=== PATIENT | male | born 1990 | race Caucasian/White ===

== ENCOUNTER 2017-10-17 14:42 | Emergency (ER) | payer BC, OTHER ==
[2017-10-17 14:56] VITALS: BMI 34.4
[2017-10-17 14:58] VITALS: BP 147/82; PULSE 77; RESP 16; TEMP 98.4; O2SAT 98
--- NOTE | 2017-10-17 15:10 | C.PDOC ---
History Of Present Illness 26-year-old male, presents to the emergency department with complaints of pain to right wisdom tooth ongoing for the past few days. Pt took Tylenol with minimal relief. He denies any nausea/vomiting, fever. No other complaints at this time. Time Seen by Provider: 10/17/17 15:02 Chief Complaint (Nursing): Dental Pain History Per: Patient History/Exam Limitations: no limitations Current Symptoms Are (Timing): Still Present Severity: Moderate Past Medical History Reviewed: Historical Data, Nursing Documentation, Vital Signs Vital Signs: Last Vital Signs Temp 98.4 F 10/17/17 14:56 Pulse 77 10/17/17 14:56 Resp 16 10/17/17 14:56 BP 147/82 10/17/17 14:56 Pulse Ox 98 10/17/17 19:42 Family History: States: No Known Family Hx - Social History Hx Alcohol Use: No Hx Substance Use: No - Immunization History Hx Tetanus Toxoid Vaccination: No Hx Influenza Vaccination: No Hx Pneumococcal Vaccination: No Review Of Systems Constitutional: Negative for: Fever, Chills ENT: Positive for: Other (teeth pain) Respiratory: Negative for: Cough, Shortness of Breath Gastrointestinal: Negative for: Nausea, Vomiting Neurological: Negative for: Headache Physical Exam - Physical Exam Appears: Non-toxic, No Acute Distress Skin: Normal Color, Warm, Dry, No Rash Head: Atraumatic, Normacephalic Eye(s): bilateral: Normal Inspection Nose: Normal Oral Mucosa: Moist Lips: Normal Appearing Teeth: Other (Right lower wisdom tooth, impacted, +gingival swelling. No abscess , no blood) Neck: Normal ROM Chest: Symmetrical Respiratory: No Accessory Muscle Use (No apparent respiratory distress) Extremity: Normal ROM, No Deformity Neurological/Psych: Oriented x3, Normal Speech ED Course And Treatment O2 Sat by Pulse Oximetry: 98 (RA) Pulse Ox Interpretation: Normal Medical Decision Making Medical Decision Making: Plan: Pt treated with Penicillin, and discharged for outpatient f/u with dentist. Disposition Counseled Patient/Family Regarding: Need For Followup - Disposition Referrals: [facility] [Outside] Disposition: HOME/ ROUTINE Disposition Time: 15:05 Condition: STABLE Additional Instructions: Por favor rogleio un seguimiento con el dentista Carla medicamento Prescriptions: Acetaminophen with Codeine [Tylenol with Codeine No. 3 300 mg-30 mg] 1 tab PO Q8 PRN #20 tab PRN Reason: Pain, Moderate (4-7) Penicillin VK [Penicillin VK Tab] 1 tab PO BID #20 tab Instructions: Dental Pain (DC) Forms: [facility] ([place]) Print Language: GUINEAN - POA Present On Arrival: None - Clinical Impression Clinical Impression: Dental caries - Scribe Statement The provider has reviewed the documentation as recorded by the Scribe (Eloy Tucker) All medical record entries made by the Scribe were at my direction and personally dictated by me. I have reviewed the chart and agree that the record accurately reflects my personal performance of the history, physical exam, medical decision making, and the department course for this patient. I have also personally directed, reviewed, and agree with the discharge instructions and disposition.
== END 2017-10-17 15:36 | disposition home or self-care (01) ==
LOC: C.ER 14:42
DX: K02.9 Dental caries, unspecified (principal)